=== PATIENT | female | born 1975 | race American Indian/Alaskan Native ===

== ENCOUNTER → 2021-10-12 | Emergency (ER) | payer MEDICAID, OTHER ==
[~2021-10-12] VITALS: Ht 175.3 cm; Wt 131.5 kg
[~2021-10-12] MED LIST: TRAM-297 PO
[2021-10-13 00:40] VITALS: BP 184/117
== END | disposition home or self-care (01) ==
LOC: ER 19:16
DX: M77.32 Calcaneal spur, left foot (principal); M77.31 Calcaneal spur, right foot
CPT/HCPCS: 73620

== ENCOUNTER 2023-06-09 01:23 | Emergency (ER) | payer MEDICAID ==
[~2023-06-09] VITALS: Ht 175.3 cm; Wt 163.0 kg
[2023-06-09] MEDS: ALBUTEROL SULF 2.5 MG/0.5ML(0.5%) NEB SOLN NEB ONE ×2 (02:14→02:57)
[2023-06-09] MEDS: IPRATROPIUM BROM 0.5 MG/2.5ML INH SOL NEB ONE ×2 (02:14→02:57)
[2023-06-09 02:40] LABS: COVID19 ANTIGEN SOFIA FIA NEGATIVE (NEGATIVE); Rapid Influenza A Negative (Negative); Rapid Influenza B Negative (Negative)
[2023-06-09] MEDS ORDERED: ALBU108A5 IN (03:23)
[2023-06-09] MEDS ORDERED: PRED20TA2 PO (03:23)
[2023-06-09] MEDS: DexAMETHasone SOD PHOS 10MG/1ML VIAL INJ IM ONE (04:05)
[2023-06-09 04:16] VITALS: BP 131/56; PULSE 97; RESP 20; TEMP 98; O2SAT 97
== END 2023-06-09 04:28 | disposition home or self-care (01) ==
LOC: ER 01:23
DX: J45.901 Unspecified asthma with (acute) exacerbation (principal); I10 Essential (primary) hypertension; Z20.822 Contact with and (suspected) exposure to COVID-19
CPT/HCPCS: 36415; 87426; 87804; 94640; 96372; 99284; J1100; J7644